=== PATIENT | female | born 2000 | race Caucasian/White ===

== ENCOUNTER 2022-07-18 17:07 | Emergency (ER) | payer SELFPAY ==
[~2022-07-18] VITALS: Ht 157.5 cm; Wt 57.0 kg
[2022-07-18] MEDS ORDERED: IBUPROFEN (17:09)
[2022-07-18] MEDS ORDERED: ONDANSETRON HCL 4MG/2ML INJ IV ONE (21:00)
[2022-07-18] MEDS ORDERED: ONDANSETRON HCL 4MG/2ML INJ IV NR (21:00)
[2022-07-18] MEDS ORDERED: FAMOTIDINE 20MG/2ML VIAL IV ONE (21:00)
[2022-07-18] MEDS ORDERED: FAMOTIDINE 20MG/2ML VIAL IV NR (21:00)
[2022-07-18] MEDS ORDERED: SODIUM CHLORIDE 0.9% 1,000 ML IV ONE (21:00)
[2022-07-18 21:23] LABS: BASOPHILS % 0.5 % (0.0-2.0); HEMATOCRIT. 37.4 % (36.0-48.0); HEMOGLOBIN. 11.8 g/dL (12.0-16.0); MEAN CORPUSCULAR HEMOGLOBIN 27.4 pg (28.0-32.0); MEAN CORPUSCULAR VOLUME 86.6 fL (81.0-99.0); MEAN PLATELET VOLUME 7.5 fl (7.4-10.4); MONOCYTES % 6.6 % (2.0-8.0); NEUTROPHILS % 47.9 % (40.0-76.0); PLATELET 455 x1000/uL (130-400); RED BLOOD CELL COUNT 4.32 mill/uL (4.2-5.4); RED CELL DISTRIBUTION WIDTH 21.2 % (11.6-14.6)
[2022-07-18 21:34] LABS: CHLORIDE 109 mEq/L (98-107); PROTHROMBIN TIME 10.3 sec (9.6-11.0)
[2022-07-19] MEDS ORDERED: ACETAMINOPHEN 325MG TABLET PO ONE (00:15)
[2022-07-19 00:55] LABS: CLARITY URINE CLEAR (CLEAR); COLOR URINE YELLOW (YELLOW); KETONES URINE TRACE (NEGATIVE); LEUKOCYTE ESTERASE URINE 3+ (NEGATIVE); NITRITE URINE NEGATIVE (NEGATIVE); OCCULT BLOOD URINE NEGATIVE (NEGATIVE); PH URINE 6.5 (4.5-8.0); PROTEIN URINE 1+ (NEGATIVE); SPECIFIC GRAVITY URINE 1.029 (1.005-1.030); UROBILINOGEN URINE 0.2 E.U./dL (0.2-1.0)
[2022-07-19] MEDS ORDERED: CEFTRIAXONE 1 G PREMIX 50 ML IV ONE (01:00)
[2022-07-19] MEDS ORDERED: NITR100C MT (01:50)
[2022-07-19 02:00] VITALS: BP 101/59
== END 2022-07-19 02:25 | disposition home or self-care (01) ==
LOC: ER 17:07
DX: R10.13 Epigastric pain (principal)
CPT/HCPCS: 36415; 76700; 76856; 80053; 81003; 85025; 85610; 87086; 96361; 96365; 99285; J0696; J2405; J3490; J7030; Z7610; 76805